=== PATIENT | female | born 1960 | race Caucasian/White ===

== ENCOUNTER 2018-07-17 11:31 | Emergency (ER) | payer SELFPAY ==
[~2018-07-17] VITALS: Ht 162.6 cm; Wt 70.0 kg
[2018-07-17] MEDS ORDERED: MORPHINE SULFATE 4 MG/ML CPJ (NOT FOR IM USE) IV STA (12:06)
[2018-07-17] MEDS ORDERED: ONDANSETRON HCL 4MG/2ML INJ IV STA (12:06)
[2018-07-17 12:33] LABS: CLARITY URINE CLEAR (CLEAR); COLOR URINE YELLOW (YELLOW); KETONES URINE NEGATIVE (NEGATIVE); LEUKOCYTE ESTERASE URINE 2+ (NEGATIVE); NITRITE URINE NEGATIVE (NEGATIVE); OCCULT BLOOD URINE NEGATIVE (NEGATIVE); PH URINE 6.5 (4.5-8.0); PROTEIN URINE NEGATIVE (NEGATIVE); SPECIFIC GRAVITY URINE 1.019 (1.005-1.030); UROBILINOGEN URINE 0.2 E.U./dL (0.2-1.0)
[2018-07-17 13:18] LABS: BASOPHILS % 0.7 % (0.0-2.0); EOSINOPHILS % 2.6 % (0.0-5.0); HEMATOCRIT. 38.9 % (36.0-48.0); HEMOGLOBIN. 13.7 g/dL (12.0-16.0); MEAN CORPUSCULAR HEMOGLOBIN 32.3 pg (28.0-32.0); MEAN CORPUSCULAR VOLUME 91.9 fL (81.0-99.0); MEAN PLATELET VOLUME 8.7 fl (7.4-10.4); MONOCYTES % 7.8 % (2.0-8.0); NEUTROPHILS % 57.9 % (40.0-76.0); PLATELET 213 x1000/uL (130-400); RED BLOOD CELL COUNT 4.23 mill/uL (4.2-5.4)
[2018-07-17 13:25] LABS: CHLORIDE 107 mEq/L (98-107)
[2018-07-17 13:57] VITALS: BP 126/71
== END 2018-07-17 14:08 | disposition home or self-care (01) ==
LOC: ER 11:48
DX: N39.0 Urinary tract infection, site not specified (principal); Z90.49 Acquired absence of other specified parts of digestive tract
CPT/HCPCS: 36415; 71045; 76705; 80053; 81003; 81025; 83690; 85025; 85610; 99284; J2270; J2405; Z7610